=== PATIENT | female | born 1960 | race Caucasian/White ===

== ENCOUNTER 2022-12-01 09:30 | Outpatient (RCR) | payer BC, SELFPAY | END 2023-03-31 23:59 | disposition home or self-care (01) | PROVIDERS: PCP Family Medicine; Visit Provider Family Medicine | DX: M67.911 Unspecified disorder of synovium and tendon, right shoulder (principal); M25.511 Pain in right shoulder; R53.1 Weakness; M89.8X1 Other specified disorders of bone, shoulder; Z51.89 Encounter for other specified aftercare | CPT/HCPCS: 97110; 97140; 97162 ==

== ENCOUNTER 2023-12-21 09:30 | Outpatient (RCR) | payer MEDICARE, BC, SELFPAY | END 2024-02-28 10:06 | disposition home or self-care (01) | PROVIDERS: PCP Family Medicine; Visit Provider Family Medicine | DX: M25.512 Pain in left shoulder (principal); M62.81 Muscle weakness (generalized); R60.9 Edema, unspecified; Z74.09 Other reduced mobility; Z51.89 Encounter for other specified aftercare | CPT/HCPCS: 97110; 97140; 97161 ==